=== PATIENT | female | born 1995 | race Caucasian/White ===

== ENCOUNTER 2016-10-07 09:11 | Emergency (ER) | payer OTHER ==
[~2016-10-07 09:11] MED LIST: COLACE100 MG PO; FEOSOL325 MG PO; IBUPROFEN600 MG PO; NORCO 5-325 TA1 EACH PO; ORTHO MICRONO0.35 MG PO
== END 2016-10-07 14:19 | disposition home or self-care (01) ==
LOC: ER1 09:11
DX: N20.0 Calculus of kidney (principal); F32.9 Major depressive disorder, single episode, unspecified
CPT/HCPCS: 36415; 81001; 84703; 96374; 96375; 99284; J1885; J2405; J7030

== ENCOUNTER 2020-08-04 17:49 | Outpatient (CLI) | payer OTHER ==
[~2020-08-04 17:49] MED LIST changes: +CLINDAMYCIN HC150 MG PO; +DIFLUCAN150 MG PO; +IRON325 M1 PO; +KEFLEX500 MG PO; +OMEPRAZOLE40 MG PO; +PROBIOTIC & AC1 EACH PO
== END 2020-08-04 22:56 | disposition home or self-care (01) ==
LOC: GENOP 17:49
PROVIDERS: Obstetrics & Gynecology
DX: O36.8130 Decreased fetal movements, third trimester, not applicable or unspecified (principal); O99.891 Other specified diseases and conditions complicating pregnancy; R10.2 Pelvic and perineal pain; Z3A.28 28 weeks gestation of pregnancy
CPT/HCPCS: 80307; 81001; 83518; 96360; 96365; 96366; 96367; 96368; 96372; G0463; J0696; J0702

== ENCOUNTER 2020-09-28 21:44 | Outpatient (CLI) | payer OTHER | END 2020-09-28 23:44 | disposition home or self-care (01) | LOC: GENOP 21:44 | DX: O36.8130 Decreased fetal movements, third trimester, not applicable or unspecified (principal); O62.9 Abnormality of forces of labor, unspecified; Z3A.35 35 weeks gestation of pregnancy | CPT/HCPCS: G0463 ==

== ENCOUNTER 2020-10-14 18:58 | Inpatient (IN) | payer OTHER ==
[~2020-10-14] VITALS: Ht 160 cm; Wt 108.0 kg
[2020-10-15 02:16] LABS: HEMOGLOBIN 8.3 gm/dl (12.3-15.3); RED BLOOD COUNT 3.48 M/UL (4.00-5.10); WHITE BLOOD COUNT 9.7 K/UL (4.5-11.0)
[2020-10-15] MEDS ORDERED: PRENATAL VITAM1 EAC5 PO (08:48)
[2020-10-15] MEDS ORDERED: FERREX 150 FOR1 EACH PO (14:12)
[2020-10-15] MEDS ORDERED: IBUPROFEN800 MG PO (14:12)
[2020-10-15] MEDS ORDERED: COLACE100 MG PO (14:12)
[2020-10-16 05:58] LABS: HEMOGLOBIN 8.3 gm/dl (12.3-15.3)
[2020-10-16] MEDS ORDERED: COLACE100 MG PO (13:48)
[2020-10-16] MEDS ORDERED: IBUPROFEN800 MG PO (13:48)
[2020-10-16] MEDS ORDERED: FERREX 150 FOR1 EACH PO (13:48)
== END 2020-10-16 13:00 | disposition home or self-care (01) | DRG 807 ==
LOC: GENOP 18:58 → OB 10-15 01:00
PROVIDERS: ADMIT Obstetrics & Gynecology
PROC: 4A1HX4Z Monitoring of Products of Conception, Cardiac Electrical Activity, External Approach (ICD-10-PCS; principal; 2020-10-15)
PROC: 10E0XZZ Delivery of Products of Conception, External Approach (ICD-10-PCS; 2020-10-15)
DX: O99.214 Obesity complicating childbirth (principal); Z37.0 Single live birth; E66.9 Obesity, unspecified; Z3A.38 38 weeks gestation of pregnancy; K21.9 Gastro-esophageal reflux disease without esophagitis; O99.284 Endocrine, nutritional and metabolic diseases complicating childbirth; E28.2 Polycystic ovarian syndrome; O99.02 Anemia complicating childbirth; D64.9 Anemia, unspecified; Z20.822 Contact with and (suspected) exposure to COVID-19; F32.9 Major depressive disorder, single episode, unspecified
CPT/HCPCS: 36415; 51702; 81001; 85014; 85018; 85025; 90471; 90715; J2590; J2795; J7120; U0002

== ENCOUNTER → 2021-02-14 | Outpatient (CLI) | payer OTHER ==
[~2021-02-14] MED LIST changes: +FERREX 150 FOR1 EACH PO; +IBUPROFEN800 MG PO; +PRENATAL VITAM1 EAC5 PO
== END ==
LOC: KOH-I 13:26
DX: M54.2 Cervicalgia (principal); M25.511 Pain in right shoulder
CPT/HCPCS: 72040; 73030